=== PATIENT | male | born 1955 | race Two or more races ===

== ENCOUNTER 2018-05-21 00:06 | Emergency (ER) | payer OTHER ==
[~2018-05-21] VITALS: Ht 167.6 cm; Wt 77.1 kg
[2018-05-21 00:59] VITALS: BP 101/62
[2018-05-21 01:57] LABS: Basophils # (auto) 0.1 uL; Basophils % (auto) 0.4 % (0.0-2.0); Eosinophils # (auto) 0.1 uL; Eosinophils % (auto) 0.5 % (0.0-7.0); Hematocrit 38.2 % (41.0-53.0); Hemoglobin 12.7 g/dL (13.5-17.5); Lymphocytes # (auto) 3.3 uL; Lymphocytes % (auto) 23.2 % (10.0-50.0); Mean Corpuscular Hemoglobin 30.6 pg (28.0-32.0); Mean Corpuscular Hgb Conc. 33.1 g/dL (32.0-36.0); Mean Corpuscular Volume 92.5 fL (80.0-100.0); Monocytes # (auto) 0.8 uL; Monocytes % (auto) 5.9 % (0.0-12.0); Neutrophils # (auto) 9.8 uL; Nucleated Red Blood Cells % 0.1 %; Red Blood Cells 4.13 10^6/uL (4.5-5.90); Red Cell Distribution Width 13.4 % (11.8-14.3)
[2018-05-21 02:03] LABS: INR 0.93 (0.9-1.15); Partial Thromboplastin Time 17.9 sec (23.78-33.04)
[2018-05-21 02:05] LABS: Albumin 3.3 g/dL (3.4-5.0); Anion Gap 9 (5-15); Blood Urea Nitrogen 21 mg/dL (7-18); Calcium 7.4 mg/dL (8.5-10.1); Carbon Dioxide 22 mmol/L (21-32); Chloride 114 mmol/L (98-107); Glucose 102 mg/dL (74-106); Magnesium 2.5 mg/dL (1.6-2.6); Potassium 3.5 mmol/L (3.5-5.1); Sodium 145 mmol/L (136-145)
[2018-05-21 02:07] LABS: BUN/Creatinine Ratio 21.2; GFR African American 99 mL/min; GFR Non-African American 81 mL/min
[2018-05-21 02:10] LABS: Alanine Aminotransferase 24 U/L (16-61); Alkaline Phosphatase 68 U/L (45-117); Aspartate Aminotransferase 22 U/L (15-37); Bilirubin, Total 0.1 mg/dL (0.2-1.0); Total Protein 6.7 g/dL (6.4-8.2)
[2018-05-21 02:17] LABS: Blood Alcohol 294.6 mg/dL (0-5)
[2018-05-21] MEDS ORDERED: PROMETHAZINE HCL 25 MG/ML 1ML IV ONE (02:30)
[2018-05-21] MEDS ORDERED: MULTIPLE VITAMIN 10 ML, MAGNESIUM SULF SDV 50% 8 MEQ in D5W/SOD CHL 0.45% 1,000 ML IV SCH (02:30)
[2018-05-21] MEDS ORDERED: MORPHINE SULF INJ 2 MG/ML SYRINGE 1ML IV ONE (02:30)
[2018-05-21 02:33] LABS: Platelet Count (auto) 145 10^3/uL (140-450)
[2018-05-21] MEDS ORDERED: MVI in SODIUM CHLORIDE 0.9% 1,010 ML ONE (02:45)
[2018-05-21] MEDS ORDERED: LIDOCAINE W/ EPINEPHRINE 1% 20ML VIAL ONE (05:09)
[2018-05-21] MEDS ORDERED: LIDOCAINE W/ EPINEPHRINE 1% 20ML VIAL SC ONE (05:45)
[2018-05-21] MEDS ORDERED: TETANUS-DIPTH-ACEL PERTUSSIS 0.5ML SYRG IM ONE (05:45)
== END 2018-05-21 05:48 | disposition home or self-care (01) ==
LOC: ER 00:06 → EDBD 00:06 → ER 05:48
DX: S01.01XA Laceration without foreign body of scalp, initial encounter (principal); G92 Toxic encephalopathy; F10.920 Alcohol use, unspecified with intoxication, uncomplicated; Y90.0 Blood alcohol level of less than 20 mg/100 ml; W19.XXXA Unspecified fall, initial encounter; Y93.89 Activity, other specified; Y99.8 Other external cause status; Y92.89 Other specified places as the place of occurrence of the external cause
CPT/HCPCS: 12002; 36415; 70450; 71045; 72125; 80053; 80320; 83735; 84484; 85025; 85610; 85730; 90471; 90715; 93005; 96365; 96366; 96375; 99284; J2270; J2550; J3411; J3475; J7030